=== PATIENT | female | born 1935 | race African-American/Black ===

== ENCOUNTER 2023-08-24 14:07 | Emergency (ER) | payer OTHER ==
[~2023-08-24] VITALS: Ht 167.6 cm; Wt 75.0 kg
[2023-08-24 14:15] VITALS: O2SAT 98
[2023-08-24] MEDS: SODIUM CHLORIDE 0.9% 500 ML IV ONE (14:48)
[2023-08-24 14:54] LABS: BASOPHILS % 0.3 % (0.0-2.0); EOSINOPHILS % 1.8 % (0.0-5.0); HEMATOCRIT. 35.2 % (36.0-48.0); HEMOGLOBIN. 11.9 g/dL (12.0-16.0); LYMPHOCYTES % 19.4 % (20.0-50.0); MEAN CORPUSCULAR HEMOGLOBIN 29.6 pg (28.0-32.0); MEAN CORPUSCULAR HGB CONC 33.8 g/dL (31.0-37.0); MEAN CORPUSCULAR VOLUME 87.5 fL (81.0-99.0); MEAN PLATELET VOLUME 9.6 fl (7.4-10.4); MONOCYTES % 6.8 % (2.0-8.0); NEUTROPHILS % 71.7 % (40.0-76.0); PLATELET 151 x1000/uL (130-400); RED BLOOD CELL COUNT 4.02 mill/uL (4.2-5.4); RED CELL DISTRIBUTION WIDTH 14.3 % (11.6-14.6); WHITE BLOOD COUNT 7.3 x1000/uL (4.5-11.0)
[2023-08-24 15:01] LABS: CHLORIDE 107 mEq/L (98-107); POTASSIUM 4.3 mEq/L (3.5-5.1); SODIUM 138 mEq/L (136-145)
[2023-08-24 15:02] LABS: CARBON DIOXIDE 27 mEq/L (21-32)
[2023-08-24 15:07] LABS: GLUCOSE 98 mg/dL (70-105); TROPONIN I HIGH SENSITIVITY 8 ng/L (3.0-34); UREA NITROGEN BLOOD 9 mg/dL (9-23)
[2023-08-24] MEDS: ACETAMINOPHEN 325MG TABLET PO NR (15:08)
[2023-08-24 16:02] VITALS: BP 155/59; PULSE 63; RESP 13; TEMP 36.61404; O2SAT 97
== END 2023-08-24 16:38 | disposition home or self-care (01) ==
LOC: ER 14:07
DX: R55 Syncope and collapse (principal); I10 Essential (primary) hypertension
CPT/HCPCS: 99285; 96360; 71045; 80048; 83880; 85025; 84484; 36415; 93005; J7030